=== PATIENT | male | born 1980 | race Caucasian/White ===

== ENCOUNTER 2018-03-21 06:15 | Emergency (ER) | payer SELFPAY ==
[~2018-03-21] VITALS: Ht 172.7 cm; Wt 81.8 kg
[2018-03-21] MEDS ORDERED: MAGOX PO (06:36)
[2018-03-21] MEDS ORDERED: ATOR40TA28 PO (06:36)
[2018-03-21] MEDS ORDERED: NALT50TA6 PO (06:36)
[2018-03-21] MEDS ORDERED: INDO50 PO (06:36)
[2018-03-21] MEDS ORDERED: PROP40TA7 PO (06:36)
[2018-03-21] MEDS ORDERED: TraMADol HCL 50 MG TABLET PO ONE (07:45)
[2018-03-21] MEDS ORDERED: KETOROLAC TROMETHAMINE 60 MG/2 ML VIAL IM ONE (07:45)
[2018-03-21] MEDS ORDERED: COLCHICINE 0.6 MG TABLET PO ONE (07:45)
[2018-03-21 10:04] VITALS: BP 137/88
== END 2018-03-21 10:08 | disposition home or self-care (01) ==
LOC: EMS 06:16
DX: M10.9 Gout, unspecified (principal); F10.20 Alcohol dependence, uncomplicated; I10 Essential (primary) hypertension; E78.00 Pure hypercholesterolemia, unspecified; Y90.9 Presence of alcohol in blood, level not specified
CPT/HCPCS: 96372; 99283; J1885